=== PATIENT | male | born 1970 | race Caucasian/White ===

== ENCOUNTER 2016-07-09 15:25 | Emergency (ER) | payer OTHER ==
[2016-07-09 16:29] VITALS: RESP 18
[2016-07-09] MEDS ORDERED: RX INFO: IV CONTRAST WAS GIVEN 1 EACH MISC MISCELLANE PRN (17:02)
[2016-07-09] MEDS ORDERED: IOHEXOL 350 MG/ML 25 ML BOTTLE (ORAL USE) PO PRN (17:02)
--- NOTE | 2016-07-09 17:14 | ED ---
Abdominal Pain HPI - General Chief Complaint: Abdominal Pain Stated Complaint: Groin Pain Time Seen by Provider: 07/09/16 16:40 Source: patient Mode of arrival: ambulatory Limitations: no limitations - History of Present Illness Initial Comments: The patient is a 45-year-old male who presents to the ED with a chief complaint of abdominal pain. Patient states that he has been having intermittent left lower quadrant pain for the past several days. The patient states he feels like his episodes of pain have grown in frequency. Patient denies any fever or chills associated with his abdominal pain. He states he feels like there is a bulge located in the left inguinal region. Patient states that he went to a relative's house for [place] and afterwards developed excruciating pain in the left groin. He denies any dysuria or hematuria. The patient states that he went to an urgent care facility yesterday, who performed a physical examination and told him that he likely has an inguinal hernia. He was referred to follow up with his PCP. The patient states that he was also given instructions to purchase an abdominal binder. Patient states that he purchased an abdominal binder and has been wearing it for the past 24 hours. He states that did slightly improve his symptoms but after he took it off, he felt ill again. The patient is a [place]. 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 He notes nausea yesterday but denies any vomiting. Patient denies any cough or shortness of breath. Denies any history of diverticulosis or diverticulitis. - Related Data Home Medications Medication Instructions Recorded Confirmed No Known Home Medications [No 07/09/16 07/09/16 Known Home Medications] Allergies Allergy/AdvReac Type Severity Reaction Status Date / Time Penicillins Allergy Unknown Verified 07/09/16 17:16 Childhood ragweed pollen Allergy Cough Verified 07/09/16 17:16 Review of Systems ROS Statement: Those systems with pertinent positive or pertinent negative responses have been documented in the HPI. ROS Other: All systems not noted in ROS Statement are negative. Constitutional: Denies: fever, chills, weakness ENT: Denies: throat pain Respiratory: Denies: cough, dyspnea, wheezes, hemoptysis Cardiovascular: Denies: chest pain, palpitations, dyspnea on exertion Endocrine: Denies: fatigue Gastrointestinal: Reports: abdominal pain (LLQ, left inguinal), nausea Genitourinary: Denies: urgency, dysuria, frequency, hematuria Musculoskeletal: Denies: back pain Skin: Denies: rash Neurological: Denies: headache, weakness, numbness, paresthesias, confusion Psychiatric: Denies: anxiety, depression Past Medical History Past Medical History: No Reported History History of Any Multi-Drug Resistant Organisms: None Reported Past Surgical History: Orthopedic Surgery Past Psychological History: No Psychological Hx Reported Smoking Status: Never smoker Past Alcohol Use History: None Reported Past Drug Use History: None Reported General Exam Limitations: no limitations General appearance: alert, in no apparent distress Head exam: Present: atraumatic, normocephalic Eye exam: Present: normal appearance, PERRL Pupils: Present: normal accommodation ENT exam: Present: normal exam, normal oropharynx Neck exam: Present: normal inspection Respiratory exam: Present: normal lung sounds bilaterally. Absent: respiratory distress, wheezes, rales, rhonchi, stridor, chest wall tenderness Cardiovascular Exam: Present: regular rate, normal rhythm GI/Abdominal exam: Present: soft, tenderness (LLQ and suprapubic region). Absent: distended, guarding, rebound, rigid exam: Present: normal inspection External exam: Present: normal external exam Extremities exam: Present: normal inspection, full ROM, tenderness Back exam: Present: normal inspection, full ROM Neurological exam: Present: alert, oriented X3 Psychiatric exam: Present: normal affect, normal mood Skin exam: Present: warm, dry, intact Course Vital Signs 07/09/16 07/09/16 07/09/16 16:25 19:21 19:54 Temperature 98.6 F 98.8 F Pulse Rate 79 77 Respiratory 18 18 Rate Blood Pressure 146/73 131/76 O2 Sat by Pulse 97 97 Oximetry Medical Decision Making - Medical Decision Making Patient is a 45-year-old male who presents to the ED with a chief complaint of left lower quadrant pain. Patient states that the pain has been present over the course the past several days. He states that he went to an urgent care facility yesterday where they told him that they believed he might be suffering from an inguinal hernia. Patient was instructed to grab an abdominal binder, which he did. States he's been wearing it with mild improvement of symptoms. Patient denies any fevers or chills. States he did have one episode of nausea yesterday. Patient states that having normal bowel movements. Denies any dysuria or hematuria. Denies any history of ureteral stone. On physical examination patient is noted to be tender in the left lower abdomen and left inguinal region. No appreciable hernia on examination. No tenderness to palpation of the epididymis. Otherwise genital examination within normal limits. Concern for possible diverticulitis, ureteral stone, or possible inguinal hernia. 7:33 PM Updated patient overall findings including normal CT abdomen and pelvis. Counseled patient that if he had inguinal hernia present intermittently, it might not show up on his CT abdomen and pelvis. It would only be present if it were incarcerated. I have counseled the patient to follow up with his primary care physician for further evaluation of his inguinal hernia. I provided the patient with contact information for General Surgery so that he might be able to schedule a follow-up appointment for further evaluation. 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 I have encouraged the patient not to lift more than 15 pounds at any point in time. I have answered the patient's questions to his satisfaction. I have encouraged the patient to return to the ED should his symptoms worsen. - Lab Data Result diagrams: 07/09/16 17:35 07/09/16 17:35 Lab Results 07/09/16 07/09/16 07/09/16 Range/Units 17:35 17:35 18:15 WBC 6.3 (3.8-10.6) k/uL RBC 4.86 (4.30-5.90) m/uL Hgb 14.4 (13.0-17.5) gm/dL Hct 42.4 (39.0-53.0) % MCV 87.2 (80.0-100.0) fL MCH 29.7 (25.0-35.0) pg MCHC 34.0 (31.0-37.0) g/dL RDW 12.8 (11.5-15.5) % Plt Count 245 (150-450) k/uL Neutrophils % 61 % Lymphocytes % 28 % Monocytes % 5 % Eosinophils % 4 % Basophils % 1 % Neutrophils # 3.8 (1.3-7.7) k/uL Lymphocytes # 1.8 (1.0-4.8) k/uL Monocytes # 0.3 (0-1.0) k/uL Eosinophils # 0.3 (0-0.7) k/uL Basophils # 0.0 (0-0.2) k/uL Sodium 139 (137-145) mmol/L Potassium 4.1 (3.5-5.1) mmol/L Chloride 105 (98-107) mmol/L Carbon Dioxide 24 (22-30) mmol/L Anion Gap 10 mmol/L BUN 22 H (9-20) mg/dL Creatinine 0.83 (0.66-1.25) mg/dL Est GFR (MDRD) Af Amer >60 (>60 ml/min/1.73 sqM) Est GFR (MDRD) Non-Af >60 (>60 ml/min/1.73 sqM) Glucose 147 H (74-99) mg/dL Calcium 9.5 (8.4-10.2) mg/dL Magnesium 2.1 (1.6-2.3) mg/dL Urine Color Yellow Urine Appearance Clear (Clear) Urine pH 5.5 (5.0-8.0) Ur Specific [place] 1.027 (1.001-1.035) Urine Protein Negative (Negative) Urine Glucose (UA) Negative (Negative) Urine Ketones Negative (Negative) Urine Blood Negative (Negative) Urine Nitrite Negative (Negative) Urine Bilirubin Negative (Negative) Urine Urobilinogen <2.0 (<2.0) mg/dL Ur Leukocyte Esterase Negative (Negative) Disposition Clinical Impression: Inguinal hernia Disposition: HOME SELF-CARE Condition: Good Instructions: Inguinal Hernia (ED) Referrals: Connor Tubbs DO [Primary Care Provider] - 07/16/16 Judit Palencia MD [STAFF PHYSICIAN] - 07/23/16 (Dr. Palencia is a General Surgeon. Please call her office to schedule a follow-up appointment within the next two weeks regarding your visit to the ED today. Dr. Palencia can help to evaluate your hernia and help to plan for surgical repair, if indicated) Time of Disposition: 19:33
[2016-07-09 17:45] LABS: Basophils % (A) 1 %; CH 30.6; CHCM 35.2; Eosinophils # (A) 0.3 k/uL (0-0.7); Eosinophils % (A) 4 %; HCT 42.4 % (39.0-53.0); HDW 2.75; HGB 14.4 gm/dL (13.0-17.5); Luc # (Auto) 0.11; Luc % (Auto) 2; Lymphocytes # (A) 1.8 k/uL (1.0-4.8); Lymphocytes % (A) 28 %; MCH 29.7 pg (25.0-35.0); MCV 87.2 fL (80.0-100.0); Mean Platelet Volume 6.1; Monocytes # (A) 0.3 k/uL (0-1.0); Monocytes % (A) 5 %; Neutrophils # (A) 3.8 k/uL (1.3-7.7); Neutrophils % (A) 61 %; RBC 4.86 m/uL (4.30-5.90); RDW 12.8 % (11.5-15.5); WBC 6.3 k/uL (3.8-10.6); WBC (Perox) 6.37
[2016-07-09 17:57] LABS: Anion Gap 10 mmol/L; Blood Urea Nitrogen 22 mg/dL (9-20); Calcium 9.5 mg/dL (8.4-10.2); Carbon Dioxide 24 mmol/L (22-30); Chloride 105 mmol/L (98-107); Glucose 147 mg/dL (74-99); Magnesium 2.1 mg/dL (1.6-2.3); Non-African American GFR(MDRD) >60 (>60 ml/min/1.73 sqM); Potassium 4.1 mmol/L (3.5-5.1); Sodium 139 mmol/L (137-145)
[2016-07-09 18:22] LABS: Appearance,Urine Clear (Clear); Bilirubin,Urine Negative (Negative); Glucose,Urine (UA) Negative (Negative); Ketones,Urine Negative (Negative); Leukocyte Esterase,Urine Negative (Negative); Nitrite,Urine Negative (Negative); PH, Urine 5.5 (5.0-8.0); Protein,Urine Negative (Negative); Specific Gravity,Urine 1.027 (1.001-1.035); UA Billing (MACRO vs. MICRO) CHEM; Urobilinogen,Urine <2.0 mg/dL (<2.0)
--- NOTE | 2016-07-09 18:56 | CT ---
EXAMINATION TYPE: CT abdomen pelvis w con DATE OF EXAM: 07/09/2016 6:42 PM COMPARISON: NONE HISTORY: Patient complains of LLQ pain. CT DLP: 1344 mGycm Automated exposure control for dose reduction was used. TECHNIQUE: Helical acquisition of images was performed from the lung bases through the pelvis. CONTRAST: Performed with Oral Contrast and with IV Contrast, patient injected with 100 mL of Omnipaque 300. FINDINGS: Lung bases are clear of consolidation. There is no pleural effusion. Heart size is normal. Liver spleen pancreas appear normal. Gallbladder is contracted. Bile ducts are not dilated. There is no adrenal mass. Kidneys show satisfactory contrast opacification. There is no hydronephrosis. There is no retroperitoneal adenopathy. There is no ascites. I see no bony destructive process. There is no intestinal wall thickening. There are no dilated loops. There is no sign of appendicitis. IMPRESSION: THE GALLBLADDER IS CONTRACTED. NO SIGN OF APPENDICITIS. NO DEFINITE INTESTINAL ABNORMALITY SEEN.
[2016-07-09 19:22] VITALS: BP 131/76; PULSE 77
[2016-07-09 19:55] VITALS: TEMP 98.8
== END 2016-07-09 19:54 | disposition home or self-care (01) ==
LOC: EC 15:25
DX: K40.90 Unilateral inguinal hernia, without obstruction or gangrene, not specified as recurrent (principal); Z88.0 Allergy status to penicillin; Z91.09 Other allergy status, other than to drugs and biological substances
CPT/HCPCS: 36415; 80048; 83735; 85025; 81003; 74177; 99284; Q9967

== ENCOUNTER 2017-04-16 17:56 | Emergency (ER) | payer OTHER ==
[2017-04-16 18:04] VITALS: BP 134/85; PULSE 90; RESP 16; TEMP 98.7
[2017-04-16] MEDS ORDERED: DIPH,PERTUS(ACELL)TETVAC-LF 0.5 ML VIAL IM ONE (18:14)
--- NOTE | 2017-04-16 18:19 | ED ---
Wound/Laceration HPI - General Chief Complaint: Wound/Laceration Stated Complaint: laceration, little finger left hand Time Seen by Provider: 04/16/17 18:08 Source: patient, RN notes reviewed Mode of arrival: ambulatory Limitations: no limitations - History of Present Illness Initial Comments: This is a 46-year-old male who presents to the emergency department with chief complaint of left pinky finger laceration. Patient states that approximately one hour prior to arrival he was using a [employer] pliers to hit something. The blade of the knife was not properly secured and when he came down to strike the pliers onto something the knife blade swung around and "guillotined the finger." Patient states he almost dropped the entire tip of his finger off. He does not believe that he hit the bone. States he is not up-to-date with his tetanus vaccination. Denies any other injuries. Denies fever, chills, chest pain, shortness of breath, abdominal pain, nausea or vomiting, constipation or diarrhea, dysuria or hematuria, numbness or tingling, headache or vision changes. - Related Data Previous Rx's Medication Instructions Recorded Cephalexin [Keflex] 500 mg PO Q12HR #20 cap 04/16/17 Allergies Allergy/AdvReac Type Severity Reaction Status Date / Time Penicillins Allergy Unknown Verified 04/16/17 18:04 Childhood ragweed pollen Allergy Cough Verified 04/16/17 18:04 Review of Systems ROS Statement: Those systems with pertinent positive or pertinent negative responses have been documented in the HPI. ROS Other: All systems not noted in ROS Statement are negative. Past Medical History Past Medical History: No Reported History History of Any Multi-Drug Resistant Organisms: None Reported Past Surgical History: Orthopedic Surgery Past Psychological History: No Psychological Hx Reported Smoking Status: Never smoker Past Alcohol Use History: None Reported Past Drug Use History: None Reported General Exam - General Exam Comments Initial Comments: General: Awake and alert, well-developed; in no apparent distress. HEENT: Head atraumatic, normocephalic. Pupils are equal, round and reactive to light. Extraocular movements intact. Oropharynx moist without erythema or exudate. Neck: Supple. Normal ROM. Cardiovascular: Regular rate and rhythm. No murmurs, rubs or gallops. Chest symmetrical. Respiratory: Lungs clear to auscultation bilaterally. No wheezes, rales or rhonchi. Normal respiratory effort with no use of accessory muscles. Musculoskeletal: Normal ROM of left fifth digit. Circumferential laceration involving approximately 2/3 of the distal tip of left fifth digit. The laceration is completely through tip of the fingernail. Sensation is intact. Radial pulses are 2+ equal and palpable bilaterally. Skin: [place], warm and dry without rashes. Laceration as noted above. Neurological: Alert and oriented x3. CN II-XII grossly intact. Speech is fluent and answers are appropriate. No focal neuro deficits. Psychiatric: Normal mood and affect. No overt signs of depression or anxiety noted. Limitations: no limitations Course Vital Signs 04/16/17 18:01 Temperature 98.7 F Pulse Rate 90 Respiratory 16 Rate Blood Pressure 134/85 O2 Sat by Pulse 97 Oximetry Procedures - Laceration Laceration #1 Consent Obtained: verbal consent Indication: laceration Site: hand (Distal tip left fifth digit) Size (cm): 2 Description: flap (Circumferential laceration) Depth: involves muscle layer Anesthetic Used: lidocaine 1% Anesthesia Technique: nerve block Amount (mls): 4 Pre-repair: wound explored, irrigated extensively Type of Sutures: nylon Size of Sutures: 5-0 Number of Sutures: 6 Technique: simple, interrupted Patient Tolerated Procedure: well, no complications Medical Decision Making - Medical Decision Making This is a 46-year-old male who presented to the emergency department for evaluation of the left fifth digit laceration. Patient sustained a circumferential laceration of the distal tip of his left fifth digit with nail involvement. He did sustain a tuft fracture. Patient was given an updated tetanus vaccination. He received IM Ancef in the emergency department. 6 sutures were placed and patient tolerated well without complication. He is neurovascularly intact. A finger splint was placed and patient will be provided a referral to hand surgery. Patient will be discharged home with a prescription for Keflex as well as a starter pack for Tylenol with Codeine. Return parameters were discussed. Patient will be discharged home. He is in no acute distress. Patient is in agreement with plan and voices understanding. All questions were answered. - Radiology Data Radiology results: report reviewed X-ray left fifth finger impression: 1. A tiny chip fracture distal tuft fifth digit. 2. Soft tissue injury. 3. Radiopaque foreign bodies are not identified. Disposition Clinical Impression: Laceration of finger of left hand with damage to nail, Open fracture of tuft of distal phalanx of finger Disposition: HOME SELF-CARE Condition: Good Instructions: Finger Fracture (ED), Finger Laceration (ED), Acetaminophen/ Codeine (By mouth) Additional Instructions: Please follow up with Dr. Giles Andersen, hand surgery within 1-2 days. Please keep splint dry and intact. May remove for showering. Please keep sutures clean and dry for 24-48 hours then can leave wound open to air. Please take medications as prescribed. Please follow up with primary care provider within 1- 2 days. Return to emergency department if symptoms should worsen or any concerns arise. Prescriptions: Cephalexin [Keflex] 500 mg PO Q12HR #20 cap Referrals: Connor Tubbs DO [Primary Care Provider] - 1-2 days Bhavin Andersen DO [Doctor of Osteopathic Medicine] - 1-2 days Time of Disposition: 19:24
[2017-04-16] MEDS ORDERED: ceFAZolin 1,000 MG VIAL IM STA (18:48)
--- NOTE | 2017-04-16 19:07 | XR ---
EXAMINATION TYPE: XR finger LT DATE OF EXAM: 04/16/2017 COMPARISON: NONE HISTORY: Fifth digit laceration TECHNIQUE: Three-view distal fifth digit FINDINGS: There is a tiny chip fracture at the distal tuft of the fifth digit. Soft tissue prominence may be present. No additional fractures are evident. Joint spaces are preserved. IMPRESSION: 1. Tiny chip fracture distal tuft fifth digit. 2. Soft tissue injury. 3. Radiopaque foreign bodies are not identified.
[2017-04-16] MEDS ORDERED: ACET/COD 300 MG/30 MG STARTER PACK 6 TAB BTL PO STA (19:19)
== END 2017-04-16 19:34 | disposition home or self-care (01) ==
LOC: EC 17:56
DX: S62.637B Displaced fracture of distal phalanx of left little finger, initial encounter for open fracture (principal); S61.317A Laceration without foreign body of left little finger with damage to nail, initial encounter; Z23 Encounter for immunization; Z88.0 Allergy status to penicillin; Z91.048 Other nonmedicinal substance allergy status; W26.0XXA Contact with knife, initial encounter; Y92.009 Unspecified place in unspecified non-institutional (private) residence as the place of occurrence of the external cause
CPT/HCPCS: 73140; 90715; 99283; 12001; 96372; 90471; J0690

== ENCOUNTER 2018-01-04 15:00 | Inpatient (IN) | payer OTHER ==
--- NOTE | 2018-01-04 15:40 | ED ---
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 Patient denies any trauma patient denies any neck pain. Patient denies having his arm resting on any object for long periods of time. Patient also states he's been having some anterior left chest pain which radiates straight through to his back just medial to the scapula. Patient also complains of pain in his triceps on occasion which she states is severe as if someone is ripping it off his triceps. Patient also states lately he has been getting a lot more heartburn at night than he normally does. Patient denies any difficulty breathing or shortness of breath. Patient denies any fever chills. Patient denies any trauma or injury. Patient denies any headache. Patient denies nausea vomiting. Patient denies any medical problems prior to this event. Patient states symptoms have not worsened over the 2 half weeks and they have not improved as well. - Related Data Home Medications Medication Instructions Recorded Confirmed Cyclobenzaprine [Flexeril] 10 mg PO BID 01/04/18 01/04/18 Ibuprofen [Motrin Ib] 600 mg PO BID 01/04/18 01/04/18 Multivitamins, Thera [Multivitamin 1 tab PO DAILY 01/04/18 01/04/18 (formulary)] predniSONE See Taper PO 01/04/18 Allergies Allergy/AdvReac Type Severity Reaction Status Date / Time Penicillins Allergy Unknown Verified 01/04/18 16:06 Childhood ragweed pollen Allergy Cough Verified 01/04/18 16:06 Review of Systems ROS Statement: Those systems with pertinent positive or pertinent negative responses have been documented in the HPI. ROS Other: All systems not noted in ROS Statement are negative. Past Medical History Past Medical History: No Reported History History of Any Multi-Drug Resistant Organisms: None Reported Past Surgical History: Orthopedic Surgery Past Psychological History: No Psychological Hx Reported Smoking Status: Never smoker Past Alcohol Use History: None Reported Past Drug Use History: None Reported General Exam - General Exam Comments Initial Comments: GENERAL: Patient is well-developed and well-nourished. Patient is nontoxic and well- hydrated and is in mild distress. ENT: Neck is soft and supple. No significant lymphadenopathy is noted. Oropharynx is clear. Moist mucous membranes. Neck has full range of motion without eliciting any pain. EYES: The sclera were anicteric and conjunctiva were pink and moist. Extraocular movements were intact and pupils were equal round and reactive to light. Eyelids were unremarkable. PULMONARY: Unlabored respirations. Good breath sounds bilaterally. No audible rales rhonchi or wheezing was noted. CARDIOVASCULAR: There is a regular rate and rhythm without any murmurs gallops or rubs. ABDOMEN: Soft and nontender with normal bowel sounds. SKIN: Skin is clear with no lesions or rashes and otherwise unremarkable. NEUROLOGIC: Patient is alert and oriented x3. Cranial nerves II through XII are grossly intact. Patient has significant weakness of finger extension on the left hand of all 5 fingers but particular third fourth and fifth finger. 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 Patient has slight tenderness to palpate left upper chest wall. And to the posterior thorax just medial to the scapula. MUSCULOSKELETAL: Normal extremities with adequate strength and full range of motion. No lower extremity swelling or edema. No calf tenderness. LYMPHATICS: No significant lymphadenopathy is noted PSYCHIATRIC: Normal psychiatric evaluation. Normal interpersonal interactions appears functionally intact in deals appropriately with others. No signs of depression. No signs of anxiety. Limitations: no limitations Course Vital Signs 01/04/18 01/04/18 01/04/18 15:17 16:00 16:30 Temperature 98.2 F Pulse Rate 90 89 Respiratory 20 18 18 Rate Blood Pressure 123/74 128/85 123/90 O2 Sat by Pulse 97 98 Oximetry 01/04/18 01/04/18 18:00 18:30 Temperature Pulse Rate 82 Respiratory 18 18 Rate Blood Pressure 126/81 126/85 O2 Sat by Pulse Oximetry Medical Decision Making - Medical Decision Making EKG shows normal sinus rhythm at 86 bpm WI interval is 200 QRS is 90 QT intervals 352 QTC is 421. Patient's EKG shows no ST segment elevation or ST segment depression patient does have some T-wave inversions in leads [address] of the aorta was ordered because the patient was having chest pain and back pain with associated neurologic deficit. CAT scan was negative. CT of the brain was ordered because of the deficit in the patient's hand CT of the brain was negative. Patient remained the same relative to the weakness in the hand I talked with Dr. Tubbs he wanted the patient minute to see Dr. Malik admitted the patient I consult to Dr. Malik. I wrote admitting orders. - Lab Data Result diagrams: 01/04/18 16:04 01/04/18 16:04 Lab Results 01/04/18 01/04/18 01/04/18 Range/Units 16:04 16:04 16:04 WBC 8.3 (3.8-10.6) k/uL RBC 5.23 (4.30-5.90) m/uL Hgb 15.1 (13.0-17.5) gm/dL Hct 43.7 (39.0-53.0) % MCV 83.5 (80.0-100.0) fL MCH 28.8 (25.0-35.0) pg MCHC 34.5 (31.0-37.0) g/dL RDW 12.9 (11.5-15.5) % Plt Count 274 (150-450) k/uL Neutrophils % 61 % Lymphocytes % 28 % Monocytes % 5 % Eosinophils % 4 % Basophils % 0 % Neutrophils # 5.1 (1.3-7.7) k/uL Lymphocytes # 2.3 (1.0-4.8) k/uL Monocytes # 0.4 (0-1.0) k/uL Eosinophils # 0.4 (0-0.7) k/uL Basophils # 0.0 (0-0.2) k/uL PT (9.0-12.0) sec INR (<1.2) APTT (22.0-30.0) sec Sodium 140 (137-145) mmol/L Potassium 4.4 (3.5-5.1) mmol/L Chloride 103 (98-107) mmol/L Carbon Dioxide 28 (22-30) mmol/L Anion Gap 9 mmol/L BUN 22 H (9-20) mg/dL Creatinine 0.92 (0.66-1.25) mg/dL Est GFR (CKD-EPI)AfAm >90 (>60 ml/min/1.73 sqM) Est GFR (CKD-EPI)NonAf >90 (>60 ml/min/1.73 sqM) Glucose 157 H (74-99) mg/dL Calcium 9.3 (8.4-10.2) mg/dL Magnesium 2.2 (1.6-2.3) mg/dL Total Bilirubin 0.3 (0.2-1.3) mg/dL AST 31 (17-59) U/L ALT 57 (21-72) U/L Alkaline Phosphatase 70 (38-126) U/L Total Creatine Kinase 89 (55-170) U/L CK-MB (CK-2) 2.7 H (0.0-2.4) ng/mL CK-MB (CK-2) Rel Index 3.0 Troponin I <0.012 (0.000-0.034) ng/mL Total Protein 7.0 (6.3-8.2) g/dL Albumin 4.0 (3.5-5.0) g/dL 01/04/18 Range/Units 16:04 WBC (3.8-10.6) k/uL RBC (4.30-5.90) m/uL Hgb (13.0-17.5) gm/dL Hct (39.0-53.0) % MCV (80.0-100.0) fL MCH (25.0-35.0) pg MCHC (31.0-37.0) g/dL RDW (11.5-15.5) % Plt Count (150-450) k/uL Neutrophils % % Lymphocytes % % Monocytes % % Eosinophils % % Basophils % % Neutrophils # (1.3-7.7) k/uL Lymphocytes # (1.0-4.8) k/uL Monocytes # (0-1.0) k/uL Eosinophils # (0-0.7) k/uL Basophils # (0-0.2) k/uL PT 9.6 (9.0-12.0) sec INR 1.0 (<1.2) APTT 22.5 (22.0-30.0) sec Sodium (137-145) mmol/L Potassium (3.5-5.1) mmol/L Chloride (98-107) mmol/L Carbon Dioxide (22-30) mmol/L Anion Gap mmol/L BUN (9-20) mg/dL Creatinine (0.66-1.25) mg/dL Est GFR (CKD-EPI)AfAm (>60 ml/min/1.73 sqM) Est GFR (CKD-EPI)NonAf (>60 ml/min/1.73 sqM) Glucose (74-99) mg/dL Calcium (8.4-10.2) mg/dL Magnesium (1.6-2.3) mg/dL Total Bilirubin (0.2-1.3) mg/dL AST (17-59) U/L ALT (21-72) U/L Alkaline Phosphatase (38-126) U/L Total Creatine Kinase (55-170) U/L CK-MB (CK-2) (0.0-2.4) ng/mL CK-MB (CK-2) Rel Index Troponin I (0.000-0.034) ng/mL Total Protein (6.3-8.2) g/dL Albumin (3.5-5.0) g/dL Critical Care Time Critical Care Time: Yes Total Critical Care Time: 35 Disposition Clinical Impression: Partial paralysis of hand, Chest pain Disposition: ADMITTED IP TO THIS HOSP Referrals: Connor Tubbs DO [Primary Care Provider] - 1-2 days Time of Disposition: 19:18
[2018-01-04 16:17] LABS: Basophils % (A) 0 %; Eosinophils # (A) 0.4 k/uL (0-0.7); Eosinophils % (A) 4 %; HCT 43.7 % (39.0-53.0); HGB 15.1 gm/dL (13.0-17.5); Lymphocytes # (A) 2.3 k/uL (1.0-4.8); Lymphocytes % (A) 28 %; MCH 28.8 pg (25.0-35.0); MCHC 34.5 g/dL (31.0-37.0); MCV 83.5 fL (80.0-100.0); Monocytes # (A) 0.4 k/uL (0-1.0); Monocytes % (A) 5 %; Neutrophils # (A) 5.1 k/uL (1.3-7.7); Neutrophils % (A) 61 %; Platelet Count 274 k/uL (150-450); RBC 5.23 m/uL (4.30-5.90); RDW 12.9 % (11.5-15.5); WBC 8.3 k/uL (3.8-10.6)
[2018-01-04 16:29] LABS: Creatine Kinase 89 U/L (55-170)
[2018-01-04 16:31] LABS: ALT 57 U/L (21-72); AST 31 U/L (17-59); Alkaline Phosphatase 70 U/L (38-126); Anion Gap 9 mmol/L; Blood Urea Nitrogen 22 mg/dL (9-20); Calcium 9.3 mg/dL (8.4-10.2); Carbon Dioxide 28 mmol/L (22-30); Chloride 103 mmol/L (98-107); Glucose 157 mg/dL (74-99); Magnesium 2.2 mg/dL (1.6-2.3); Potassium 4.4 mmol/L (3.5-5.1); Sodium 140 mmol/L (137-145); Total Bilirubin 0.3 mg/dL (0.2-1.3)
[2018-01-04 16:32] LABS: Partial Thromboplastin Time 22.5 sec (22.0-30.0); Prothrombin Time 9.6 sec (9.0-12.0)
[2018-01-04 16:42] LABS: Creatine Kinase MB 2.7 ng/mL (0.0-2.4); Troponin I <0.012 ng/mL (0.000-0.034)
--- NOTE | 2018-01-04 17:20 | CT ---
EXAMINATION: CT brain wo con DATE AND TIME: 01/04/2018 4:58 PM CLINICAL INDICATION: Pain Left sided chest pain with arm numbness and headache TECHNIQUE: Standard departmental protocol. DLP 1150 mGy-cm. COMPARISON: None. FINDINGS: The calvarium is intact. There is no intracranial hemorrhage. There is no intracranial mass or mass effect. No definite new intra-axial or extra-axial attenuation defect. The paranasal sinuses, middle ear cavities, and mastoid sinus air cells are clear. The orbits are unremarkable. IMPRESSION: NO ACUTE PROCESS.
--- NOTE | 2018-01-04 17:28 | CT ---
EXAMINATION TYPE: CT angio thor/abd pel aorta with contrast and with 3-D reconstruction renderings DATE OF EXAM: 01/04/2018 COMPARISON: 07/09/1969 HISTORY: Left sided chest pain with arm numbness and headache CT DLP: 1219 mGycm. Automated Exposure Control for Dose Reduction was Utilized. CONTRAST: CT scan of the thorax, abdomen and pelvis is performed with IV Contrast, patient injected w ith 100 mL of Isovue 370. 3-D reconstructions. FINDINGS: LUNGS: The lungs are grossly clear, there is no concerning parenchymal mass or nodule identified. The re is no pleural effusion or pneumothorax seen. The tracheobronchial tree is patent. MEDIASTINUM: There is no cardiomegaly. No pericardial effusion. Aorta and pulmonary vasculature are u nremarkable. There are no greater than 1 cm hilar or mediastinal lymph nodes. OTHER: No additional significant abnormality is seen. LIVER/GB: No focal significant abnormality is appreciated. The liver parenchyma is diffusely hypodense to the spleen, suggesting diffuse fatty infiltration of t he liver. The caudate lobe is prominent. PANCREAS: No significant abnormality is seen. SPLEEN: No significant abnormality is seen. ADRENALS: No significant abnormality is seen. KIDNEYS: No significant abnormality is seen. BOWEL: No significant abnormality is seen. GENITAL ORGANS: No gross abnormality seen. LYMPH NODES: No greater than 1cm abdominal or pelvic lymph nodes are appreciated. OSSEOUS STRUCTURES: No significant abnormality is seen. VASCULATURE: 1. The caliber of the inferior vena cava is prominently diminished throughout nearly all of its exte nt. This can be seen in hypotension. 2. Nonaneurysmal atherosclerotic calcifications are noted. IMPRESSION: 1. INFERIOR VENA CAVA CALIBER NARROWING TO A PROMINENT DEGREE, SUGGESTS HYPOTENSION. 2. NO OTHER ACUTE CT FINDING. NO OSSEOUS FRACTURE, ABNORMAL FLUID COLLECTION, OR EVIDENCE OF SOLID OR MARCUS INJURY IN THE THORAX, ABDOMEN, OR PELVIS.
--- NOTE | 2018-01-04 18:06 | XR ---
EXAMINATION: XR chest 2V DATE AND TIME: 01/04/2018 5:54 PM CLINICAL INDICATION: Chest Pain TECHNIQUE: PA and lateral COMPARISON: None. FINDINGS: The lungs are clear. The pleural spaces are negative. The cardiac silhouette is not enlarged. The remainder of the mediastinal silhouette is unremarkable. The skeletal structures and soft tissues are negative for acute findings. IMPRESSION: NO ACUTE PROCESS.
[2018-01-04] MEDS ORDERED: ASPIRIN 325 MG TAB PO STA (19:25)
[2018-01-04 22:31] VITALS: BMI 29.2
[2018-01-05 01:34] LABS: Cholesterol 242 mg/dL (<200); HDL Cholesterol 25 mg/dL (40-60)
[2018-01-05 01:48] LABS: Triglycerides 623 mg/dL (<150)
[2018-01-05] MEDS: IBUPROFEN 200 MG TAB PO PRN ×3 (02:43→15:23)
--- NOTE | 2018-01-05 08:10 | US ---
EXAMINATION TYPE: US carotid duplex BILAT DATE OF EXAM: 01/05/2018 COMPARISON: NONE CLINICAL HISTORY: Stenosis. Left arm weakness and numbness EXAM MEASUREMENTS: RIGHT: Peak Systolic Velocity (PSV) cm/sec ----- Right CCA: 96.3 ----- Right ICA: 74.3 ----- Right ECA: 92.1 ICA/CCA ratio: 0.8 RIGHT: End Diastole cm/sec ----- Right CCA: 33.6 ----- Right ICA: 25.9 ----- Right ECA: 18.7 LEFT: Peak Systolic Velocity (PSV) cm/sec ----- Left CCA: 96.2 ----- Left ICA: 83.9 ----- Left ECA: 101.5 ICA/CCA ratio: 0.9 LEFT: End Diastole cm/sec ----- Left CCA: 33.2 ----- Left ICA: 25.7 ----- Left ECA: 25.7 VERTEBRALS (direction of flow): Right Vertebral: Antegrade Left Vertebral: Antegrade Rhythm: Normal No elevated velocities, no significant stenosis. IMPRESSION: Minimal degree of grayscale atheromatous plaquing with no sonographically evident hemody namically significant stenosis within either visualized carotid arterial system.
[2018-01-05] MEDS ORDERED: ASPIRIN 325 MG TAB PO SCH (09:00)
[2018-01-05] MEDS ORDERED: IBUPROFEN 200 MG TAB PO SCH (09:00)
[2018-01-05] MEDS: CYCLOBENZAPRINE 10 MG TAB PO SCH ×2 (09:33→20:13)
[2018-01-05] MEDS ORDERED: LORazepam 2 MG/ML INJ IV STA (10:51)
--- NOTE | 2018-01-05 13:47 | ECHOF ---
Referral Reason:Thrombus MEASUREMENTS -------- HEIGHT: 182.9 cm WEIGHT: 89.8 kg BP: IVSd: 1.2 cm (0.6 - 1.1) LVIDd: 3.9 cm (3.9 - 5.3) LVPWd: 1.1 cm (0.6 - 1.1) IVSs: 1.9 cm LVIDs: 1.7 cm LVPWs: 1.8 cm RVIDd: 2.8 cm (< 3.3) Ao Diam: 3.2 cm (2.0 - 3.7) LA Diam: 2.7 cm (2.7 - 3.8) AV Cusp: 2.3 cm (1.5 - 2.6) EPSS: 0.7 cm MV E Donte: 0.46 m/s MV DecT: 143 ms MV A Donte: 0.50 m/s MV E/A Ratio: 0.91 RAP: 5.00 mmHg RVSP: 14.52 mmHg MV EF SLOPE: 127.47 mm/s (70 - 150) MV EXCURSION: 15.27 mm (> 18.000) FINDINGS -------- This was a technically good study. The left ventricular size is normal. Left ventricular wall thickness is normal. Overall left vent ricular systolic function is normal with, an EF between 55 - 60 %. The right ventricle is normal in size. The left atrium is normal in size. The right atrium is normal in size. Lumason used The aortic valve is trileaflet, and appears structurally normal. No aortic stenosis or regurgitation. There is trace mitral regurgitation. Trace tricuspid regurgitation present. The right ventricular systolic pressure, as measured by Dopp ler, is 14.52mmHg. Pulmonic valve appears structurally normal. The aortic root size is normal. Normal inferior vena cava with normal inspiratory collapse consistent with estimated right atrial pre ssure of 5 mmHg. The pericardium is normal. CONCLUSIONS -------- 1. This was a technically good study. 2. The left ventricular size is normal. 3. Left ventricular wall thickness is normal. 4. Overall left ventricular systolic function is normal with, an EF between 55 - 60 %. 5. The right ventricle is normal in size. 6. The left atrium is normal in size. 7. The right atrium is normal in size. 8. Lumason used 9. The aortic valve is trileaflet, and appears structurally normal. No aortic stenosis or regurgitati on. 10. There is trace mitral regurgitation. 11. Trace tricuspid regurgitation present. 12. The right ventricular systolic pressure, as measured by Doppler, is 14.52mmHg. 13. Pulmonic valve appears structurally normal. 14. The aortic root size is normal. 15. Normal inferior vena cava with normal inspiratory collapse consistent with estimated right atrial pressure of 5 mmHg. 16. The pericardium is normal. [employer] MAN: Bianca Fish RDCS
[2018-01-05] MEDS ORDERED: predniSONE 20 MG TAB PO STA (14:12)
--- NOTE | 2018-01-05 14:31 | P.HPIM ---
History of Present Illness H&P Date: 01/05/18 Chief Complaint: unable to move left hand 47-year-old male who presents to emergency room on 01/04/2018 with a chief complaint of inability to move his fingers of his left hand. Patient reports that approximately two weeks he began to have difficulty with his left hand. 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 The patient states he is unable to fully flex his left third, fourth, and fifth finger. Patient reports numbness to lateral left hand and fingers as well. He reports decreased strength of his left hand. Denies neck pain. Denies any trauma or injury. He also reports pain that starts in his shoulder blade and radiates down to his tricep. He denies chest pain or pressure. Denies shortness of breath. Review of Systems Those systems with pertinent positive or pertinent negative responses have been documented in the HPI Past Medical History Past Medical History: No Reported History History of Any Multi-Drug Resistant Organisms: None Reported Past Surgical History: Orthopedic Surgery Additional Past Surgical History / Comment(s): right leg Past Anesthesia/Blood Transfusion Reactions: No Reported Reaction Past Psychological History: No Psychological Hx Reported Smoking Status: Never smoker Past Alcohol Use History: None Reported Past Drug Use History: None Reported Medications and Allergies Home Medications Medication Instructions Recorded Confirmed Type Cyclobenzaprine [Flexeril] 10 mg PO BID 01/04/18 01/04/18 History Ibuprofen [Motrin Ib] 600 mg PO BID 01/04/18 01/04/18 History Multivitamins, Thera [Multivitamin 1 tab PO DAILY 01/04/18 01/04/18 History (formulary)] predniSONE See Taper PO DIRECTED #30 tab 01/05/18 Rx Allergies Allergy/AdvReac Type Severity Reaction Status Date / Time Penicillins Allergy Unknown Verified 01/04/18 16:06 Childhood ragweed pollen Allergy Cough Verified 01/04/18 16:06 Physical Exam Vitals: Vital Signs Temp Pulse Pulse Resp BP BP Pulse Ox 01/05/18 12:25 97.7 F 77 18 128/78 96 01/05/18 08:25 96.7 F L 74 16 129/72 96 01/05/18 03:41 82 18 01/05/18 03:40 97.2 F L 82 18 128/80 94 L 10/15/18 23:07 75 18 01/04/18 23:04 97.6 F 75 18 118/87 96 01/04/18 22:15 98.0 F 83 18 123/89 95 01/04/18 21:35 98.3 F 77 16 122/83 96 01/04/18 18:30 82 18 126/85 01/04/18 18:00 18 126/81 01/04/18 16:30 18 123/90 01/04/18 16:00 89 18 128/85 98 01/04/18 15:17 98.2 F 90 20 123/74 97 Intake and Output 01/04/18 01/05/18 01/05/18 22:59 06:59 14:59 Intake Total 120 Balance 120 Intake: Oral 120 Other: Voiding Method Toilet # Voids 1 Weight 92.533 kg 89.9 kg GENERAL: This is a 47-year-old male in no apparent distress at the time of examination. Pleasant and cooperative. HEENT: Head is atraumatic, normocephalic. Pupils are equal, round, and reactive to light. Sclerae anicteric. Conjunctivae are clear. Mucus membranes of the mouth are moist. Neck is supple. RESPIRATORY: Clear to ausculation. No wheezes, rales, or rhonchi. No use of accessory muscles. Patient maintaining oxygen saturation greater than 92%. No chest wall tenderness is noted on palpation or with deep breathing. CARDIOVASCULAR: Regular rate and rhythm. S1 and S2 noted. No systolic or diastolic murmur auscultated. No JVD noted. No S3 or S4 noted. GASTROINTESTINAL: No distention noted. Abdomen soft and round. Normal active bowel sounds auscultated x 4 quadrants. No pain or tenderness noted upon palpation. INTEGUMENTARY: No cyanosis. No jaundice. No rashes noted. No cellulitis noted. EXTREMITIES: 2+ peripheral pulses. No evidence of peripheral edema. No calf tenderness noted. NEUROLOGIC: Cranial nerves II-XII intact. Pain and tenderness noted upon palpation of left tricep. Hand grasps equal bilaterally. Decreased strength of left third, fourth, and fifth digit. Unable to fully flex fingers. PSYCHIATRIC: Awake, alert, and oriented X 3. Appropriate affect. Intact judgement and insight. Results CBC & Chem 7: 01/04/18 16:04 01/04/18 16:04 Labs: Abnormal Lab Results - Last 24 Hours (Table) 01/04/18 01/04/18 01/04/18 Range/Units 16:04 16:04 16:04 BUN 22 H (9-20) mg/dL Glucose 157 H (74-99) mg/dL CK-MB (CK-2) 2.7 H (0.0-2.4) ng/mL Triglycerides 623 H (<150) mg/dL Cholesterol 242 H (<200) mg/dL HDL Cholesterol 25 L (40-60) mg/dL Thrombosis Risk Factor Assmnt - Choose All That Apply Any of the Below Risk Factors Present?: Yes Each Factor Represents 1 point: Age 41-60 years Other Risk Factors: No Other congenital or acquired thrombophilia - If yes, enter type in comment: No Thrombosis Risk Factor Assessment Total Risk Factor Score: 1 Thrombosis Risk Factor Assessment Level: Low Risk Assessment and Plan Plan: ASSESSMENT: Decreased motor strength and neuropathy of left third, fourth, and fifth digit, suspect ulnar neuropathy due to repetitive use of left arm 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 Await further recommendations. Obtain MRI of the cervical spine. Begin prednisone 40mg daily. PT/OT. Recommend EMG testing. [facility] does not do EMG testing on site. Will defer to neurology if they feel EMG will benefit patient. Patient may be discharged home this evening if he is cleared by neurology. Nurse practitioner note has been reviewed by physician. Signing provider agrees with the documented findings, assessment, and plan of care.
[2018-01-05 20:07] VITALS: BP 133/88; PULSE 95; RESP 18; TEMP 97.6
[2018-01-06] MEDS ORDERED: predniSONE 20 MG TAB PO SCH (09:00)
--- NOTE | 2018-01-06 09:41 | CONS ---
CONSULTATION DATE OF CONSULTATION: 01/05/2018 CHIEF COMPLAINT: Left arm weakness and numbness. HISTORY OF PRESENT ILLNESS: Mr. John is a pleasant 47-year-old, male, who is being evaluated today on 01/05/2018 by the neurology service per the request of Dr. Connor Tubbs for the above- mentioned complaints. The patient states that he started having pain in the left upper extremity over 2 weeks ago. He tried taking [id number] ibuprofen with mild relief, but as soon as the medicine wears off, the pain returns. 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 He did see a local chiropractor for one week, but had no improvements. The pain started getting worse and he presented to [facility] Emergency Room after he failed a dose of oral steroids. In the emergency room, a CT scan of the brain was done, which was normal and his carotid Doppler showed no hemodynamically significant stenosis. An MRI of the neck was ordered but the patient was too claustrophobic to proceed with the test and the test was aborted. His CBC, comprehensive metabolic profile and cardiac enzymes were negative. His fasting lipid panel did show dyslipidemia with triglycerides at 623 and cholesterol of 242. His LDL was not calculated due to the elevation of triglycerides. At the time of my evaluation, he is sitting at the edge of his bed and appears to be in no acute distress. He continues to complain of weakness mainly in his left arm extensor muscles and some pain. He reports minimal numbness. The patient is adamant about being discharged today. PAST MEDICAL HISTORY: None. PAST SURGICAL HISTORY: Orthopedic surgery. SOCIAL HISTORY: He denies any tobacco, alcohol or drug use. FAMILY HISTORY: Noncontributory. HOME MEDICATIONS: Recently started on Motrin, Flexeril, and Medrol Dosepak. ALLERGIES: PENICILLIN and RAGWEED POLLEN. REVIEW OF SYSTEMS: CONSTITUTIONAL: Negative. EYES: Negative. ENT: Negative. CARDIOVASCULAR: Negative. RESPIRATORY: Negative. NEUROLOGICAL: As mentioned above. GASTROINTESTINAL: Negative. GENITOURINARY: Negative. PSYCHIATRIC: Negative. MUSCULOSKELETAL: As mentioned above. DERMATOLOGICAL: Negative. ENDOCRINE: Negative. PHYSICAL EXAM: Vital signs show a temperature of 97.1, pulse 83, respirations 16, blood pressure 130/85. GENERAL APPEARANCE: The patient is a well-developed male, who appears to be in no acute distress. HEENT: Normocephalic, atraumatic, no facial asymmetry is seen. Extraocular muscles are intact. Neck is supple with no masses felt. CARDIOVASCULAR: Regular rate and rhythm. ABDOMEN: Nontender, nondistended. Extremities showed no edema or clubbing. NEUROLOGICAL EXAM: The patient is awake and oriented x3. Speech and language are normal. Strength is 4/5 in wrist extension on the left side, 3/5 in finger extension on the left side, 5 minus out of 5 in triceps strength on the left side, and 5/5 elsewhere. Sensory exam was normal to light touch in all 4 extremities. No pronator drift is seen. No tremors or seizure-like activity is noticed. No facial asymmetry is seen on cranial nerve testing. IMPRESSION: 1. Left radial nerve palsy. 2. Left upper extremity weakness. 3. Numbness/tingling. 4. Dyslipidemia. RECOMMENDATION: The patient's neurological examination is consistent with a left radial nerve palsy involving the triceps as well. Abnormalities in the brachial plexus and cervical spine needs to be ruled out. I had a lengthy discussion with the patient regarding the need to undergo MRI testing and I did offer him IV sedation. The patient is adamant about leaving the hospital tonight. I had a lengthy discussion with him regarding the importance of following up in the outpatient clinic to schedule the MRIs and also to undergo neurophysiological testing with upper extremity nerve conduction study/EMG. I will give him a dose of IV Solu-Medrol 500 mg before he leaves. He should continue on his oral steroids at home. He will also need outpatient physical therapy. I do recommend further workup and management. For his dyslipidemia. Thank you Dr. Tubbs for allowing me to participate in the care of your patient. If you have any questions, please feel free to contact me. MMODL / IJN: [id number] /
--- NOTE | 2018-01-08 14:56 | P.DS ---
Providers Date of admission: 01/04/18 19:18 Expected date of discharge: 01/05/18 Attending physician: Connor Tubbs Consults: 01/04/18 19:25 Consult Physician Routine Consulting Provider: Yoon Malik Consult Reason/Comments: Paralysis of hand Do you want consulting provider notified?: Yes Primary care physician: Connor Tubbs [facility] Course: 47-year-old male who presents to emergency room on 01/04/2018 with a chief complaint of inability to move his fingers of his left hand. Patient reports that approximately two weeks he began to have difficulty with his left hand. 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 The patient states he is unable to fully flex his left third, fourth, and fifth finger. Patient reports numbness to lateral left hand and fingers as well. He reports decreased strength of his left hand. Denies neck pain. Denies any trauma or injury. He also reports pain that starts in his shoulder blade and radiates down to his tricep. He denies chest pain or pressure. Denies shortness of breath. An MRI of the cervical spine was ordered but the patient was unable to tolerate testing due to claustrophobia. Offered to administer sedation for MRI but patient continued to refuse. The patient was evaluated by neurology who feels that the patient has a left radial nerve palsy involving the triceps as well. Abnormalities in the brachial plexus and cervical spine need to be ruled out also. Neurology discussed need for MRI with the patient continued to refuse MRI inpatient. Patient reports he will follow-up outpatient to schedule MRI. He was given a dose of IV Solu-Medrol per neurology. He was deemed stable for discharge home. He was prescribed oral steroids discharge. DISCHARGE DIAGNOSIS: Decreased motor strength and neuropathy of left third, fourth, and fifth digit may be secondary to left radial nerve palsy per neurology Suspected rhomboid and tricep muscle strain/spasm Nurse practitioner note has been reviewed by physician. Signing provider agrees with the documented findings, assessment, and plan of care. Plan - Discharge Summary Discharge Rx Participant: No New Discharge Prescriptions: New predniSONE See Taper PO DIRECTED #30 tab Continue Multivitamins, Thera [Multivitamin (formulary)] 1 tab PO DAILY Ibuprofen [Motrin Ib] 600 mg PO BID Cyclobenzaprine [Flexeril] 10 mg PO BID Discontinued predniSONE See Taper PO Discharge Medication List Cyclobenzaprine [Flexeril] 10 mg PO BID 01/04/18 [History] Ibuprofen [Motrin Ib] 600 mg PO BID 01/04/18 [History] Multivitamins, Thera [Multivitamin (formulary)] 1 tab PO DAILY 01/04/18 [History ] predniSONE See Taper PO DIRECTED #30 tab 01/05/18 [Rx] Follow up Appointment(s)/Referral(s): Connor Tubbs DO [Primary Care Provider] - 01/18/18 2:20 pm (Thursday) Yoon Malik MD [STAFF PHYSICIAN] - 2 Weeks (Office is closed. Please call to schedule appointment) Activity/Diet/Wound Care/Special Instructions: After all necessary testing has been completed, you may require physical therapy. If so, Dr. Tubbs will provide you with a script for physical therapy at your follow up appointment in his office. Patient may be discharged home this evening if he is cleared by neurology. Discharge Disposition: HOME SELF-CARE
== END 2018-01-05 21:05 | disposition home or self-care (01) | DRG 74 ==
LOC: EC 15:00 → 3SCARD 19:18
PROVIDERS: ADMIT Family Medicine; ATTEND Family Medicine
DX: G56.32 Lesion of radial nerve, left upper limb (principal); E78.1 Pure hyperglyceridemia; E78.5 Hyperlipidemia, unspecified; M62.838 Other muscle spasm; F40.240 Claustrophobia; S66.812A Strain of other specified muscles, fascia and tendons at wrist and hand level, left hand, initial encounter; X50.3XXA Overexertion from repetitive movements, initial encounter; Y93.89 Activity, other specified; Y92.79 Other farm location as the place of occurrence of the external cause
CPT/HCPCS: 36415; 70450; 71046; 71275; 74174; 80053; 80061; 82550; 82553; 83735; 84484; 85025; 85610; 85730; 93005; 93306; 93880; 99291

== ENCOUNTER → 2018-10-08 | Outpatient (CLI) | payer OTHER ==
--- NOTE | 2018-10-08 14:00 | XR ---
Left hand HISTORY: Trauma and pain 3 views of the left hand correlated to the digit left hand 04/16/2017 The defect at the tuft of the fifth digit is again noted and is remarkable for some local sclerosis w hich may be due to healing. Bone mineralization, joint spaces and alignment are otherwise maintained with probable bone island in the lunate. IMPRESSION: No acute fracture or dislocation. There is evidence of remote injury to the fifth digit.
== END ==
LOC: RADXRMAIN 12:12
PROVIDERS: ATTEND Family Medicine
DX: M79.642 Pain in left hand (principal)